=== PATIENT | female | born 1995 | race Two or more races ===

== ENCOUNTER 2023-10-18 13:23 | Outpatient (CLI) | payer OTHER | END 2023-10-18 13:29 | disposition home or self-care (01) | LOC: PRENATAL 13:23 | PROVIDERS: ATTEND Obstetrics & Gynecology Maternal & Fetal Medicine | DX: O35.9XX0 Maternal care for (suspected) fetal abnormality and damage, unspecified, not applicable or unspecified (principal); Z3A.12 12 weeks gestation of pregnancy ==

== ENCOUNTER 2024-03-08 14:21 | Outpatient (CLI) | payer OTHER | END 2024-03-08 14:23 | disposition home or self-care (01) | LOC: PRENATAL 14:21 | PROVIDERS: ATTEND Obstetrics & Gynecology Maternal & Fetal Medicine | DX: O26.843 Uterine size-date discrepancy, third trimester (principal); O36.8130 Decreased fetal movements, third trimester, not applicable or unspecified; Z3A.32 32 weeks gestation of pregnancy ==

== ENCOUNTER 2024-04-12 11:21 | Inpatient (IN) | payer OTHER ==
[~2024-04-12] VITALS: Ht 170.2 cm; Wt 90.3 kg
[2024-04-12 12:28] VITALS: BP 125/78
[2024-04-12] MEDS ORDERED: PROMETHAZINE HCL 25 MG/ML AMPUL ONE (13:04)
[2024-04-12 13:29] LABS: URINE APPEARANCE Clear; URINE BILIRRUBIN Negative (NEGATIVE); URINE BLOOD Negative; URINE COLOR Yellow; URINE GLUCOSE Negative (NEGATIVE); URINE KETONE Negative (NEGATIVE); URINE LEUKOCYTE Negative; URINE NITRATE Negative; URINE PROTEIN Trace (NEGATIVE); URINE UROBILINOGEN 0.2 E.U./dl
[2024-04-12 13:29] LABS: HEMATOCRIT 35.2 % (36.0-45.00); HEMOGLOBIN 11.8 g/dL (12.0-15.00); MEAN CELL VOLUME 85.8 fL (80.00-100.00); MEAN CORPUSCULAR HEMOGLOBIN 28.8 pg (27.00-32.0); MEAN CORPUSCULAR HGB CONC 33.6 g/dl (32.0-36.0); PLATELET COUNT 290 K/uL (150-450); RED CELL DISTRIBUTION WIDTH 14.3 % (11.5-14.5)
[2024-04-12] MEDS ORDERED: MORPHINE SULFATE 4 MG/ML CARTRIDGE IV ONE (13:30)
[2024-04-12] MEDS ORDERED: RINGERS SOLUTION,LACTATED 1,000 ML IV SCH (13:30)
[2024-04-12] MEDS ORDERED: PROMETHAZINE HCL 25 MG/ML AMPUL IV ONE (13:30)
[2024-04-12 13:33] LABS: URINE BACTERIA 546.8 uL (0.0-1933); URINE EPITHELIAL CELLS 78.8 uL (0.0-38.8)
[2024-04-12 13:34] LABS: URINE CAST 1.37 uL (0.0-1.40)
[2024-04-12 13:57] LABS: URINE EPITHELIAL CELLS LOADED /HPF
[2024-04-12 14:06] LABS: INR 0.97; PARTIAL THROMBOPLASTIN TIME 29.6 SECONDS (22.0-34.0)
[2024-04-12 14:25] LABS: PROTHROMBIN TIME 10.6 SECONDS (9.0-11.5)
[2024-04-12 15:37] VITALS: BP 115/79
[2024-04-12 20:00] VITALS: BP 116/71
[2024-04-12 23:13] VITALS: BP 113/68
[2024-04-13 04:00] VITALS: BP 111/70
[2024-04-13 06:36] VITALS: BP 114/72; O2SAT 98
[2024-04-13 08:00] VITALS: BP 125/78
[2024-04-13] MEDS ORDERED: PRENATABS RX T1 EACH PO (08:00)
[2024-04-13] MEDS ORDERED: FOLIC ACID0.8 M1 PO (08:01)
[2024-04-13] MEDS ORDERED: CHILDREN'S ASPI81 MG PO (08:01)
[2024-04-13 11:43] VITALS: BP 120/75; O2SAT 99
[2024-04-13 15:54] VITALS: BP 103/67; BP 118/68
[2024-04-13] MEDS ORDERED: ERYTHROMYCIN BASE OPHT 1GM EACH TUBE OP ONE (16:02)
[2024-04-13] MEDS ORDERED: OXYTOCIN 10 UNITS/ML VIAL ONE (16:02)
[2024-04-13] MEDS ORDERED: MEPERIDINE HCL/PF 50 MG/ML VIAL IM PRN (18:00)
[2024-04-13] MEDS ORDERED: PROMETHAZINE HCL 50 MG/ML AMPUL IM PRN (18:00)
[2024-04-13] MEDS ORDERED: MORPHINE SULFATE 4 MG/ML VIAL IV ONE ×2 (19:50→20:20)
[2024-04-13 21:40] VITALS: BP 129/74; O2SAT 98
[2024-04-14 02:22] VITALS: BP 126/71
[2024-04-14 06:24] VITALS: BP 122/76
[2024-04-14] MEDS ORDERED: OxyCODONE HCL/APAP UD (PERCOCET) PO PRN (08:00)
[2024-04-14 08:28] LABS: HEMATOCRIT 30.2 % (36.0-45.00); HEMOGLOBIN 10.6 g/dL (12.0-15.00); MEAN CELL VOLUME 84.8 fL (80.00-100.00); MEAN CORPUSCULAR HEMOGLOBIN 29.8 pg (27.00-32.0); MEAN CORPUSCULAR HGB CONC 35.1 g/dl (32.0-36.0); PLATELET COUNT 256 K/uL (150-450); RED BLOOD COUNT 3.57 M/uL (4.00-6.00); RED CELL DISTRIBUTION WIDTH 14.5 % (11.5-14.5)
[2024-04-14 09:00] VITALS: BP 130/71
[2024-04-14] MEDS ORDERED: PNV,CALCIUM 72/IRON/FOLIC ACID 1 TAB TABLET PO SCH (09:00)
[2024-04-14] MEDS ORDERED: SIMETHICONE 125 MG CAPSULE PO SCH (09:00)
[2024-04-14] MEDS ORDERED: DOCUSATE SODIUM 100MG CAP PO SCH (09:00)
[2024-04-14 16:00] VITALS: BP 123/80
[2024-04-14 22:00] VITALS: BP 119/71
[2024-04-15 02:03] VITALS: BP 132/74
[2024-04-15 10:02] VITALS: BP 166/81
[2024-04-15 13:00] VITALS: BP 126/80
[2024-04-15 18:00] VITALS: BP 126/82
[2024-04-16 01:38] VITALS: BP 112/74
== END 2024-04-16 13:20 | disposition home or self-care (01) | DRG 788 ==
LOC: OBS/DEL 11:21 → LDR 04-13 07:40 → OB/GYN 04-13 18:38
PROVIDERS: ADMIT Obstetrics & Gynecology; ATTEND Obstetrics & Gynecology
PROC: 4A1HXCZ Monitoring of Products of Conception, Cardiac Rate, External Approach (ICD-10-PCS; 2024-04-13)
PROC: 10D00Z1 Extraction of Products of Conception, Low, Open Approach (ICD-10-PCS; principal; 2024-04-13 15:00)
DX: O36.8330 Maternal care for abnormalities of the fetal heart rate or rhythm, third trimester, not applicable or unspecified (principal); Z3A.37 37 weeks gestation of pregnancy; Z37.0 Single live birth; Z20.822 Contact with and (suspected) exposure to COVID-19

== ENCOUNTER 2024-08-23 11:34 | Emergency (ER) | payer OTHER ==
[~2024-08-23] VITALS: Ht 170.2 cm; Wt 74.8 kg
[~2024-08-23 11:34] MED LIST: CHILDREN'S ASPI81 MG PO; FOLIC ACID0.8 M1 PO; PRENATABS RX T1 EACH PO
[2024-08-23] MEDS ORDERED: ACETAMINOPHEN 500 MG GEL..CAP PO ONE ×2 (12:37→13:22)
[2024-08-23] MEDS ORDERED: GUAIFENESIN 200 MG/10 ML BLIST.PACK PO STA (13:05)
[2024-08-23] MEDS ORDERED: ACETAMINOPHEN 500 MG GEL..CAP PO STA (13:05)
[2024-08-23] MEDS ORDERED: CETIRIZINE HCL 5 MG/5 ML ML PO STA (13:05)
[2024-08-23] MEDS ORDERED: GUAIFENESIN 200 MG/10 ML BLIST.PACK PO ONE (13:22)
[2024-08-23] MEDS ORDERED: CETIRIZINE HCL 5MG/5ML BLIST.PACK PO ONE (13:22)
[2024-08-23] MEDS ORDERED: IBUprofen 400 MG TABLET PO STA (13:31)
[2024-08-23] MEDS ORDERED: IBUprofen 20 MG/ML BLIST.PACK (5ML) PO ONE (13:34)
[2024-08-23 13:50] LABS: HEMATOCRIT 32.6 % (36.0-45.00); HEMOGLOBIN 11.5 g/dL (12.0-15.00); MEAN CORPUSCULAR HEMOGLOBIN 28.7 pg (27.00-32.0); MEAN CORPUSCULAR HGB CONC 35.4 g/dl (32.0-36.0); PLATELET COUNT 315 K/uL (150-450); RED BLOOD COUNT 4.02 M/uL (4.00-6.00); RED CELL DISTRIBUTION WIDTH 15.4 % (11.5-14.5)
[2024-08-23] MEDS ORDERED: CEFTRIAXONE SODIUM 1,000 MG VIAL IV STA (15:14)
[2024-08-23] MEDS ORDERED: CEFTRIAXONE SODIUM 1,000 MG VIAL ONE (15:24)
[2024-08-23] MEDS ORDERED: INTESTINEX680 M1 PO (15:36)
[2024-08-23] MEDS ORDERED: ACETAMINOPHEN500 M2 PO (15:36)
[2024-08-23] MEDS ORDERED: BUDESONIDE0.5 MG/21 IH (15:36)
[2024-08-23] MEDS ORDERED: MUCINEX DM ER1 EAC1 PO (15:36)
[2024-08-23] MEDS ORDERED: ALBUTEROL2.5 MG/3 M IH (15:36)
[2024-08-23] MEDS ORDERED: AMOX-CLAV 875-1 EACH PO (15:36)
== END 2024-08-23 16:08 | disposition home or self-care (01) ==
LOC: ER 11:37
PROVIDERS: General Practice
DX: J18.9 Pneumonia, unspecified organism (principal); Z20.822 Contact with and (suspected) exposure to COVID-19

== ENCOUNTER 2024-08-24 19:03 | Inpatient (IN) | payer OTHER ==
[~2024-08-24] VITALS: Ht 213.4 cm; Wt 75.7 kg
[~2024-08-24 19:03] MED LIST changes: +ACETAMINOPHEN500 M2 PO; +ALBUTEROL2.5 MG/3 M IH; +AMOX-CLAV 875-1 EACH PO; +BUDESONIDE0.5 MG/21 IH; +INTESTINEX680 M1 PO; +MUCINEX DM ER1 EAC1 PO
[2024-08-24] MEDS ORDERED: ACETAMINOPHEN 500 MG GEL..CAP PO ONE (19:15)
--- NOTE | 2024-08-24 19:17 | NUR ---
PTE ALERTA Y ORIENTADA X3, REFIERE SUSU FUE [facility] POR PULMONIA. REFIERE DAN SHAE EMPEORANDO Y NO RESPONDE AL [place]. REFIERE ESTA MANANA SE LEVANTO CON UN RASH EN TODO EL CUERPO. AL MOMENTO PRESENTA 104.2, SE OFRECE TYLENOL. SE JONI SV Y SE UBICA
[2024-08-24] MEDS ORDERED: METHYLPREDNISOLONE SOD SUCC 125 MG VIAL IV ONE (19:45)
[2024-08-24] MEDS ORDERED: 0.9 % SODIUM CHLORIDE 1,000 ML IV SCH ×2 (19:45→22:45)
[2024-08-24] MEDS ORDERED: ACETAMINOPHEN 500 MG GEL..CAP PO PRN ×2 (19:45→23:00)
[2024-08-24] MEDS ORDERED: GUAIFENESIN/DEXTROMETHORPHAN 10ML BLIST.PACK PO ONE ×2 (19:45→19:53)
[2024-08-24] MEDS ORDERED: CEFTRIAXONE SODIUM 2,000 MG VIAL IV ONE (19:45)
[2024-08-24] MEDS ORDERED: CEFTRIAXONE SODIUM 2,000 MG VIAL ONE (19:53)
[2024-08-24] MEDS ORDERED: METHYLPREDNISOLONE SOD SUCC 125 MG VIAL ONE (19:53)
[2024-08-24 20:12] LABS: HEMATOCRIT 33.9 % (36.0-45.00); HEMOGLOBIN 11.6 g/dL (12.0-15.00); MEAN CELL VOLUME 82.3 fL (80.00-100.00); MEAN CORPUSCULAR HEMOGLOBIN 28.1 pg (27.00-32.0); MEAN CORPUSCULAR HGB CONC 34.2 g/dl (32.0-36.0); PLATELET COUNT 340 K/uL (150-450); RED BLOOD COUNT 4.12 M/uL (4.00-6.00); RED CELL DISTRIBUTION WIDTH 15.6 % (11.5-14.5)
--- NOTE | 2024-08-24 20:17 | NUR ---
PTE FEMENINA EVALUADA POR . SE ORIENTA SOBRE ORDENES DE [place] REFIERE COMPRENDER. SE COLECTAN [facility] Y SE CANALIZA VENA BAJO MEDIDAS ASEPTICAS. SE ADMINISTRA MEDICAMENTOS, BJAO MEDIDAS ASEPTICAS. SE NOTIFICA A RADIOLOGIA PARA CT PENDIENTE.
[2024-08-24] MEDS ORDERED: IPRATROPIUM/ALBUTEROL SULFATE 3 ML AMPUL.NEB IH ONE ×2 (20:49)
[2024-08-24 20:54] LABS: ALBUMIN 3.1 gm/dL (3.4-5.0); BILIRUBIN TOTAL 0.28 mg/dL (0.3-1.2); CALCIUM 9.5 mg/dL (8.5-10.1); CREATININE SERUM 0.83 mg/dL (0.55-1.02); GFR 82.46; GLOBULINA 5.2 G/DL (2.4-3.5); POTASSIUM 3.57 mEq/L (3.5-5.1); TOTAL PROTEIN 8.3 gm/dL (6.4-8.2)
[2024-08-24] MEDS ORDERED: IPRATROPIUM/ALBUTEROL SULFATE 3 ML AMPUL.NEB IH SCH (21:00)
[2024-08-24 22:42] LABS: ABG PH 7.463 (7.35-7.45); SaO2 96.3 %
[2024-08-24 22:43] LABS: BASE EXCESS -0.4 mmol/l; BICARBONATE 22.5 mmol/l (23-25); Tco2 23.5 mmol/l
[2024-08-24 22:44] LABS: ABG pCO2 32.1 mmHg (35-45); allen test SATISFACTORY; o2 21 %; puncture site RADIAL LEFT
[2024-08-24] MEDS ORDERED: AZITHROMYCIN 500 MG VIAL IV SCH (22:49)
[2024-08-24] MEDS ORDERED: MORPHINE SULFATE 2 MG/ML CARTRIDGE IV PRN (23:00)
[2024-08-24] MEDS ORDERED: hydrALAZINE HCL 20 MG VIAL IV PRN (23:00)
[2024-08-25] MEDS ORDERED: ALBUTEROL SULFATE 3 ML/2.5 MG AMPUL.NEB IH SCH (01:00)
[2024-08-25] MEDS ORDERED: METHYLPREDNISOLONE SOD SUCC 40 MG VIAL IV SCH ×2 (01:00→20:26)
[2024-08-25] MEDS ORDERED: GUAIFEN/DEXTROMETHORPHAN/PE 10 ML BLIST.PACK PO SCH (01:00)
[2024-08-25] MEDS ORDERED: IPRATROPIUM BROMIDE 0.5 MG/2.5 ML AMPUL.NEB IH SCH (01:00)
[2024-08-25 05:42] VITALS: BP 109/68; O2SAT 100
[2024-08-25 05:56] LABS: INR 1.07; PROTHROMBIN TIME 11.6 SECONDS (9.0-11.5)
[2024-08-25 06:07] VITALS: BP 108/60
[2024-08-25 06:13] LABS: HEMATOCRIT 34.3 % (36.0-45.00); HEMOGLOBIN 11.9 g/dL (12.0-15.00); MEAN CELL VOLUME 83.4 fL (80.00-100.00); MEAN CORPUSCULAR HEMOGLOBIN 28.9 pg (27.00-32.0); MEAN CORPUSCULAR HGB CONC 34.7 g/dl (32.0-36.0); PLATELET COUNT 363 K/uL (150-450); RED BLOOD COUNT 4.11 M/uL (4.00-6.00); RED CELL DISTRIBUTION WIDTH 15.4 % (11.5-14.5)
[2024-08-25 06:23] LABS: ERYTHROCYTE SEDIMENTATION RATE 110 mm/hr
[2024-08-25 06:47] LABS: ALKALINE PHOSPHATASE 171 U/L (50-136); ALT/SGPT 71 U/L (12-78); AST/SGOT 40 U/L (15-37); BILIRUBIN TOTAL 0.19 mg/dL (0.3-1.2); BILIRUBIN,CONJUGATED < 0.10 mg/dL (0.0-0.2); BILIRUBIN,UNCONJUGATED 0.09 mg/dL (0.0-0.6); CHOL HDL RATIO 3.9 (0-5.0); CHOLESTEROL 133 mg/dL (0-200); HDL 34 mg/dl (40-60); LDL 81 mg/dl (0-130); TRIGLYCERIDES 90 mg/dL (0-150); VLDL 18 (0-39)
[2024-08-25] MEDS ORDERED: AZITHROMYCIN 500 MG VIAL IV ONE (08:12)
[2024-08-25] MEDS ORDERED: CEFTRIAXONE SODIUM 1,000 MG VIAL IV SCH (09:00)
[2024-08-25 09:09] VITALS: BP 115/72; O2SAT 98
[2024-08-25 09:45] LABS: URINE APPEARANCE Clear; URINE BILIRRUBIN Negative (NEGATIVE); URINE BLOOD Negative; URINE COLOR Yellow; URINE KETONE Negative (NEGATIVE); URINE LEUKOCYTE Negative; URINE NITRATE Negative; URINE PROTEIN Trace (NEGATIVE); URINE UROBILINOGEN 0.2 E.U./dl
[2024-08-25 09:50] LABS: URINE BACTERIA 199.4 uL (0.0-1933); URINE EPITHELIAL CELLS 86.8 uL (0.0-38.8); URINE RBC 2.3 uL (0.0-20.8); URINE WBC 10.7 uL (0.0-23.2)
[2024-08-25 10:02] LABS: URINE CAST 0.29 uL (0.0-1.40); URINE GLUCOSE 250 MG/DL (NEGATIVE)
[2024-08-25 16:51] LABS: MYCOPLASMA PNEUMONIAE IGM REACTIVE (NO REACTIVE)
[2024-08-25 16:52] VITALS: BP 127/72; O2SAT 95
[2024-08-26 00:37] VITALS: BP 124/71
[2024-08-26] MEDS ORDERED: AZITHROMYCIN 500 MG VIAL IV ONE (08:57)
[2024-08-26] MEDS ORDERED: CEFTRIAXONE SODIUM 1,000 MG VIAL IV SCH (09:00)
[2024-08-26 09:04] VITALS: BP 117/67; O2SAT 96
[2024-08-26 09:45] VITALS: BP 160/90; O2SAT 98
[2024-08-26 18:27] VITALS: BP 145/64
[2024-08-26] MEDS ORDERED: LINEZOLID IN DEXTROSE 5% 600 MG/300 ML PIGGYBAG IV SCH (18:47)
[2024-08-27 02:01] VITALS: BP 131/75
[2024-08-27] MEDS ORDERED: AZITHROMYCIN 500 MG VIAL IV ONE (07:30)
[2024-08-27 09:13] VITALS: BP 137/72; O2SAT 96
== END 2024-08-27 10:57 | disposition home or self-care (01) | DRG 194 ==
LOC: ER 19:05 → MEDI 22:49 → MEDJ 08-26 08:54
PROVIDERS: General Practice; Student in an Organized Health Care Education/Training Program; ADMIT Internal Medicine; ATTEND Internal Medicine
PROC: BW24ZZZ Computerized Tomography (CT Scan) of Chest and Abdomen (ICD-10-PCS; principal; 2024-08-24)
DX: J18.9 Pneumonia, unspecified organism (principal); J21.9 Acute bronchiolitis, unspecified; A49.3 Mycoplasma infection, unspecified site; U07.0 Vaping-related disorder

== ENCOUNTER 2025-07-05 09:15 | Emergency (ER) | payer OTHER ==
[~2025-07-05] VITALS: Ht 170.2 cm; Wt 68.0 kg
[2025-07-05 14:14] LABS: BASO % 0.6 % (0.1-1.2); EOS # 0.43 (0.04-0.54); EOS % 3.9 % (0.7-7.0); LYMPH # 2.57 (1.18-3.74); LYMPH % 23.6 % (19.3-53.1); MEAN PLATELET VOLUME 10.90 fl (9.4-12.4); MONO # 0.85 (0.24-0.82); MONO % 7.8 % (4.7-12.5); NEUT # 6.97 (1.56-6.13); NEUT % 63.9 % (34.0-71.1); RED CELL DISTRIBUTION WIDTH 14.2 % (11.6-14.4)
[2025-07-05 14:35] LABS: INR 1.06
[2025-07-05 14:40] LABS: ALT/SGPT 20.0 U/L (12-78); AST/SGOT 16.0 U/L (15-37); BILIRUBIN TOTAL 0.37 mg/dL (0.3-1.2); BUN CREA RATIO 9.0 (7.0-25.0); CREATININE SERUM 0.81 mg/dL (0.55-1.02); GFR 84.19; GLOBULINA 6.0 G/DL (2.4-3.5); GLUCOSE FASTING 139.0 mg/dL (65-100); OSMOLALITY SERUM 274.0 MOSM/KG (275-295)
[2025-07-05 14:42] LABS: ERYTHROCYTE SEDIMENTATION RATE 63 mm/hr (0-20)
[2025-07-05 14:44] LABS: COVID-19 AG NEGATIVE (NEGATIVE)
[2025-07-05] MEDS ORDERED: CEFTRIAXONE SODIUM 1,000 MG VIAL IM STA (15:06)
[2025-07-05] MEDS ORDERED: METHYLPREDNISOLONE SOD SUCC 125 MG VIAL IM STA (15:06)
[2025-07-05] MEDS ORDERED: ZITHROMAX500 MG PO (15:15)
[2025-07-05] MEDS ORDERED: MEDROLPACK PO (15:15)
== END 2025-07-05 15:39 | disposition home or self-care (01) ==
LOC: ER 09:16
PROVIDERS: Physician Assistant Medical
DX: J03.80 Acute tonsillitis due to other specified organisms (principal); Z20.822 Contact with and (suspected) exposure to COVID-19